=== PATIENT | male | born 1965 | race Caucasian/White ===

== ENCOUNTER 2017-04-02 07:31 | Day surgery (SDC) | payer MEDICAID ==
[2017-04-02] MEDS ORDERED: Lactated Ringer's 500 ML IV ONE (09:08)
[2017-04-02 11:20] VITALS: TEMP 97.2
[2017-04-02 11:37] VITALS: BP 113/64; PULSE 50; RESP 20; O2SAT 100
== END 2017-04-02 11:47 | disposition home or self-care (01) ==
LOC: H.ENDO 07:31
PROVIDERS: ATTEND Internal Medicine Gastroenterology
DX: Z12.11 Encounter for screening for malignant neoplasm of colon (principal); D12.2 Benign neoplasm of ascending colon; K64.8 Other hemorrhoids; K25.9 Gastric ulcer, unspecified as acute or chronic, without hemorrhage or perforation; K31.9 Disease of stomach and duodenum, unspecified; K74.60 Unspecified cirrhosis of liver; Z21 Asymptomatic human immunodeficiency virus [HIV] infection status; B18.2 Chronic viral hepatitis C; K29.50 Unspecified chronic gastritis without bleeding
CPT/HCPCS: 43239; 45380; 88305; 88342; J7120

== ENCOUNTER 2017-04-28 21:29 | Inpatient (IN) | payer MEDICAID, OTHER ==
[2017-04-28 21:29] VITALS: BMI 27.1
--- NOTE | 2017-04-28 22:27 | ED PDOC ---
HPI: Abdomen Time Seen by Provider: 04/28/17 21:36 Chief Complaint (Nursing): Abdominal Pain Chief Complaint (Provider): Abdominal Pain History Per: Patient History/Exam Limitations: no limitations Onset/Duration Of Symptoms: Days (5) Current Symptoms Are (Timing): Still Present Severity: Moderate Pain Scale Rating Of: 9 Location Of Pain/Discomfort: Periumbilical Quality Of Discomfort: Sharp, "Pain", Other ("Like being hit with a bat") Associated Symptoms: Nausea, Diarrhea (red), Back Pain, Urinary Symptoms (dark) . denies: Vomiting Exacerbating Factors: Movement, Cough, Upright Position Alleviating Factors: OTC Meds (Motrin) Last Bowel Movement: Today (1 hour ago) Additional Complaint(s): Ramon Waddell is a pleasant 51 yo male with PMHx of HIV, Hep C, anxiety, and depression presented to the ED with periumbilical pain. He shares that he had a reducible hernia for the past 6 months, however, for the last 5 days he has been experiencing intermittent abdominal pain especially at the site of herniation. Pain was intermittent until this morning, which has been consistent. Pain is periumbilical and does not radiate to his testicles, his back or epigastric. Quality of pain is sharp and like "someone hitting you with a bat". Rated 9/10; Pain aggravated with movement, leaning forward, cough. He has taken Motrin 600mg but did not significantly alleviate his pain. Shares of associated nausea, cough, SOB and cp 2/2 to cough. He has noted having red diarrhea with dark urine today. Diarrhea x 3 with last bowel movement 1 hour ago. Denies Vomiting, recent abdominal trauma. Positive for influenza when he was last seen here on Saturday, 2 days ago. PCP: Dr. Rudolph GI: Dr. 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 NKDA Past Medical History Vital Signs: Last Vital Signs Temp 99.2 F 04/28/17 21:30 Pulse 76 04/28/17 21:30 Resp 18 04/28/17 21:30 BP 118/72 04/28/17 21:30 Pulse Ox 98 04/29/17 00:46 - Medical History PMH: Anxiety, Arthritis, Asthma, Back Problems, Depression, Hepatitis (c), HIV, Rheumatoid Arthritis (hands, knees, ankles) Denies: Chronic Kidney Disease - Surgical History Surgical History: Endoscopy Other surgeries: Liver bx - Family History Family History: States: No Known Family Hx - Social History Current smoker - smoking cessation education provided: Yes (5/day 39 years) Alcohol: None Drugs: Denies (clean for 5years from heroin abuse) - Home Medications Home Medications: Ambulatory Orders Medication Instructions Recorded Albuterol HFA [Ventolin HFA 90 2 puff IH Q4 PRN 04/23/17 mcg/actuation (8 g)] Bisacodyl [Correctol] 5 mg PO ASDIR 04/23/17 Darunavir [Prezista] 800 mg PO DAILY 04/23/17 Dolutegravir Sodium [Tivicay] 50 mg PO DAILY 04/23/17 Escitalopram [Lexapro] 5 mg PO DAILY 04/23/17 Gabapentin [Neurontin] 300 mg PO TID 04/23/17 Ibuprofen [Motrin] 600 mg PO PRN PRN 04/23/17 Metronidazole [Flagyl] 500 mg PO TID 04/23/17 Mirtazapine [Remeron] 15 mg PO HS 04/23/17 [id number]/Sod Sulf,Bicarb,Cl/KCl 4,000 ml PO ASDIR 04/23/17 [Gavilyte-C with Flavor Pack 4000 ml] Propranolol [Inderal] 20 mg PO HS 04/23/17 Ritonavir [Norvir] 100 mg PO DAILY 04/23/17 Ondansetron ODT [Zofran ODT] 4 mg PO Q6 PRN #10 odt 04/26/17 - Allergies Allergies/Adverse Reactions: Allergies Allergy/AdvReac Type Severity Reaction Status Date / Time No Known Allergies Allergy Verified 04/29/17 00:44 Review of Systems ROS Statement: Except As Marked, All Systems Reviewed And Found Negative Cardiovascular: Positive for: Chest Pain (2/2 to coughing) Respiratory: Positive for: Cough, Shortness of Breath (recent + influenza) Gastrointestinal: Positive for: Nausea, Abdominal Pain, Diarrhea, Hematochezia. Negative for: Vomiting Musculoskeletal: Positive for: Back Pain (lumbar) Neurological: Negative for: Altered Mental Status Psych: Positive for: Anxiety, Depression Physical Exam - Reviewed Vital Signs Reviewed: Yes - Physical Exam Appears: Positive for: Uncomfortable, In Acute Distress Skin: Positive for: Normal Color, Warm, Dry Eye Exam: Positive for: Normal appearance, EOMI ENT: Positive for: Hearing Is (present bl). Negative for: Nasal Congestion Neck: Positive for: Normal, Painless ROM Cardiovascular/Chest: Positive for: Regular Rate, Rhythm, Chest Non Tender. Negative for: Tachycardia Respiratory: Positive for: Normal Breath Sounds. Negative for: Accessory Muscle Use, Wheezing Gastrointestinal/Abdominal: Positive for: Bowel Sounds, Tenderness, Guarding, Hernia (periumbilical ecchymosis ) Rectal: Positive for: Normal Exam, Rectal Tone Is: (normal), Stool Is Heme: ( sent for confirmation). Negative for: Blood Streaked Stool (on VIBHA), Hemorrhoids, Mass Extremity: Positive for: Normal ROM. Negative for: Tenderness Neurologic/Psych: Positive for: Alert, gas flow regulator II-XII, Oriented - Laboratory Results Result Diagrams: 04/28/17 23:10 04/28/17 23:10 - ECG O2 Sat by Pulse Oximetry: 98 Disposition - Clinical Impression Clinical Impression: Abdominal pain - Patient ED Disposition Is Patient to be Admitted: Yes Discussed With : Nick Goetz (Abdominal pain; periumbilical hernia with ecchymosis; Cholelithiasis on US; Admit to unit ) - Disposition Disposition Time: 00:30 Condition: FAIR Forms: [facility] (Uzbek)
--- NOTE | 2017-04-28 23:33 | US ---
EXAM: US Abdomen Limited, Right Upper Quadrant CLINICAL HISTORY: 51 years old, male; Pain; Abdominal pain; Epigastric; Patient HX: Liver biopsy done TECHNIQUE: Real-time ultrasound of the right upper quadrant with image documentation. COMPARISON: No relevant prior studies available. FINDINGS: Liver: Increased in echogenicity and size measuring 18 cm in longitudinal dimension. Nodular contour. No intrahepatic bile duct dilation. Gallbladder: The gallbladder is contracted. Surrounding decreased echogenicity which may be misinterpreted as gallbladder wall edema, but without gallbladder wall hyperemia. A single stone is identified. Common bile duct: No stones. No dilation measuring 5 mm. Pancreas: Visualization of the pancreas is limited by overlying bowel gas. Right kidney: Unremarkable echogenicity and size measuring 12.3 x 5.6 x 5.2 cm. No obstructing stones. No solid mass. No hydronephrosis. IMPRESSION: Fatty infiltration of an enlarged slightly nodular liver. Cholelithiasis, with a contracted gallbladder, limiting its evaluation. Limited evaluation of the pancreas, secondary to overlying bowel gas. Otherwise, Unremarkable sonographic evaluation of the right upper quadrant, as detailed above.
[2017-04-28 23:34] LABS: BASO # 0.1 K/uL (0.0-0.2); BASO % 0.8 % (0.0-2.0); EOS # 0.1 K/uL (0.0-0.7); EOS % 1.3 % (0.0-4.0); HEMATOCRIT 37.6 % (35.0-51.0); LYMPH # 1.3 K/uL (1.0-4.3); LYMPH % 20.3 % (20.0-40.0); MEAN CELL VOLUME 99.4 fl (80.0-94.0); MEAN CORPUSCULAR HEMOGLOBIN 32.6 pg (27.0-31.0); MEAN CORPUSCULAR HGB CONC 32.8 g/dL (33.0-37.0); MEAN PLATELET VOLUME 9.6 fl (7.2-11.7); MONO # 0.7 K/uL (0.0-0.8); MONO % 10.8 % (0.0-10.0); NEUT # 4.3 K/uL (1.8-7.0); NEUT % 66.8 % (50.0-75.0); RED CELL DISTRIBUTION WIDTH 14.1 % (11.5-14.5); WHITE BLOOD COUNT 6.4 K/uL (4.8-10.8)
[2017-04-28 23:57] LABS: PARTIAL THROMBOPLASTIN TIME 29.6 Seconds (25.6-37.1)
[2017-04-28 23:59] LABS: ALB/GLOB RATIO 0.9 (1.0-2.1); ALKALINE PHOSPHATASE 198 U/L (38-126); ALT/SGPT 63 U/L (21-72); AST/SGOT 95 U/L (17-59); BILIRUBIN,TOTAL 2.7 mg/dl (0.2-1.3); BLOOD UREA NITROGEN 19 mg/dl (9-20); CALCIUM 8.1 mg/dL (8.4-10.2); CARBON DIOXIDE 26 mmol/L (22-30); CHLORIDE 110 mmol/L (98-107); GFR AFRICAN-AMERICAN > 60; GLUCOSE,RANDOM 97 mg/dL (75-110); LIPASE 391 U/L (23-300); MAGNESIUM 2.1 MG/DL (1.6-2.3); PHOSPHOROUS 2.8 mg/dl (2.5-4.5); POTASSIUM 4.2 MMOL/L (3.6-5.0); SODIUM 142 mmol/l (132-148); TOTAL PROTEIN 6.4 G/DL (6.3-8.2)
[2017-04-29] MEDS ORDERED: Sodium Chloride 0.9% 1,000 ML IV STA (00:18)
[2017-04-29 00:43] LABS: RBC URINE 3 /hpf (0-3); URINE BACTERIA RARE (<OCC); URINE BILIRUBIN SMALL (NEGATIVE); URINE BLOOD NEGATIVE (NEGATIVE); URINE COLOR AMBER (YELLOW); URINE GLUCOSE (UA) NEG (Normal); URINE KETONE NEGATIVE (NEGATIVE); URINE LEUKOCYTE ESTERASE NEG Leu/uL (Negative); URINE PROTEIN 30 mg/dL (NEGATIVE); WBC URINE 3 /hpf (0-5)
--- NOTE | 2017-04-29 01:06 | CP.PCM.HP ---
History of Present Illness - History of Present Illness History of Present Illness: 51 yo male with PMHx remarkable for HIV, Hepatitis C, anxiety, and depression presented to the [facility] ED with a complaint of abdominal pain. He reports the pain started approx Saturday after his biopsy and was located around his umbilicus. It was approx a 5/10 and intermittent without any radiation. During the week he reports the pain got progressively worse. On Thursday 04/26, he was evaluated in the ER and diagnosed with the flu. He reports during this evaluation he was still feeling the pain w/o much improvement. This morning the pain worsened and became constant. It went from 5/10 to 10/10. It is sharp in character and nonradiating. It is alleviated with rest and exacerbated with movement or anything that increases intraabdominal pressure such as coughing/ straining/flexing. He attempted a 600mg dose of Motrin w/o improvement. He reports he has been having diarrhea during the week, but today it was pure water and reddish in color. Last BM was approx 2 hours ago. Still feels the urge but says he can control it for now. He also reports much darker urine but thinks this is due to the fact that he hasnt been drinking as much. Denies fever /chills, headaches, changes in vision, CP/SOB/Palpitations, N/V, urinary symptoms, numbness/tingling. ROS: all systems reviewed, as mentioned above, otherwise negative PMD: Dr. Shantanu Gonzalez (last visit 03/25/2017) GI: Dr. Strauss? no encounters in ecw seen. but according to PMD note, appt scheduled. PMHx: HIV, Hepatitis C, Liver fibrosis, Anxiety, depression MEDs: Prezista 800mg QD, Norvir 100mg QD, Tivicay 50mg QD. Psurghx: liver biopsy PHosphx: various ED visits ALL: NKDA Vaccinehx: influenza given 03/25 Social: denies ETOH/drug abuse, still smokes tobacco, approx 6-7 cigarettes per day. reports being clean for > 5 years from substance abuse Familyhx: denies any hx of cancer/CAD/WA/Stroke ED Course: Vitals on presentation T 99.2, HR 76, BP 118/72, RR 18, POX 98% RA Labs: CBC: 6.4>12.3/37.6<109 CMP: t bili 2.7, AST 95 Lipase: 391 Urine tox: negative Coags: 14.4/1.3/29.6 Imaging: abdominal u/s: contracted gallbladder, poor evaluation of pancreas secondary to bowel gas CT ABD: Admitted to med/surg Present on Admission - Present on Admission Any Indicators Present on Admission: No Past Patient History - Past Medical History & Family History Past Medical History?: Yes - Past Social History Alcohol: None Drugs: Denies (clean for 5years from heroin abuse) - CARDIAC Hx Cardiac Disorders: No - PULMONARY Hx Asthma: Yes - NEUROLOGICAL Hx Neurological Disorder: Yes Hx Dizziness: Yes Other/Comment: NUMBNESS/CRAMPS LEGS - HEENT Hx HEENT Problems: No - RENAL Hx Chronic Kidney Disease: No - ENDOCRINE/METABOLIC Hx Endocrine Disorders: No - HEMATOLOGICAL/ONCOLOGICAL Hx Human Immunodeficiency Virus (HIV): Yes - INTEGUMENTARY Hx Dermatological Problems: No - MUSCULOSKELETAL/RHEUMATOLOGICAL Hx Arthritis: Yes Hx Rheumatoid Arthritis: Yes (hands, knees, ankles) - GASTROINTESTINAL Hx Gastrointestinal Disorders: No - GENITOURINARY/GYNECOLOGICAL Hx Genitourinary Disorders: No - PSYCHIATRIC Hx Anxiety: Yes Hx Depression: Yes - SURGICAL HISTORY Hx Surgeries: Yes - ANESTHESIA Hx Anesthesia: Yes Hx Anesthesia Reactions: No Hx Malignant Hyperthermia: No Meds Allergies/Adverse Reactions: Allergies Allergy/AdvReac Type Severity Reaction Status Date / Time No Known Allergies Allergy Verified 04/29/17 00:44 Physical Exam - Constitutional Appears: Non-toxic, No Acute Distress - Head Exam Head Exam: ATRAUMATIC, NORMOCEPHALIC - Eye Exam Eye Exam: EOMI. absent: Conjunctival injection, Scleral icterus Pupil Exam: PERRL - ENT Exam ENT Exam: Mucous Membranes Dry. absent: Mucous Membranes Moist - Neck Exam Neck exam: Positive for: Full Rom. Negative for: Lymphadenopathy - Respiratory Exam Respiratory Exam: Clear to Auscultation Bilateral, NORMAL BREATHING PATTERN. absent: Rales, Rhonchi, Wheezes - Cardiovascular Exam Cardiovascular Exam: REGULAR RHYTHM, RRR, +S1, +S2. absent: Tachycardia, JVD, Rubs, Systolic Murmur - GI/Abdominal Exam GI & Abdominal Exam: Hernia, Normal Bowel Sounds, Soft, Tenderness (gutierrez- umbilical tenderness ). absent: Distended, Firm, Guarding, Rebound, Rigid Additional comments: ecchymosis just above umbilicus, hard tender mass felt underneath - Extremities Exam Extremities exam: Positive for: normal capillary refill, normal inspection, pedal pulses present. Negative for: pedal edema, tenderness - Neurological Exam Neurological exam: Alert, CN II-XII Intact, Oriented x3, Reflexes Normal - Psychiatric Exam Psychiatric exam: Normal Affect, Normal Mood - Skin Skin Exam: Dry, Intact, Normal Color, Warm Results - Vital Signs Recent Vital Signs: Last Vital Signs Temp 99.0 F 04/29/17 00:46 Pulse 66 04/29/17 00:46 Resp 18 04/29/17 00:46 BP 121/57 L 04/29/17 00:46 Pulse Ox 98 04/29/17 00:49 - Labs Result Diagrams: 04/28/17 23:10 04/28/17 23:10 Labs: Laboratory Results - last 24 hr 04/28/17 04/28/17 04/28/17 23:10 23:10 23:10 WBC 6.4 RBC 3.79 L Hgb 12.3 Hct 37.6 MCV 99.4 H MCH 32.6 H MCHC 32.8 L RDW 14.1 Plt Count 109 L D MPV 9.6 Neut % (Auto) 66.8 Lymph % (Auto) 20.3 Nolan % (Auto) 10.8 H Eos % (Auto) 1.3 Baso % (Auto) 0.8 Neut # 4.3 Lymph # 1.3 Nolan # 0.7 Eos # 0.1 Baso # 0.1 PT 14.4 H INR 1.3 H APTT 29.6 Sodium 142 Potassium 4.2 Chloride 110 H Carbon Dioxide 26 Anion Gap 10 BUN 19 Creatinine 0.9 Est GFR ( Amer) > 60 Est GFR (Non-Af Amer) > 60 Random Glucose 97 Calcium 8.1 L Phosphorus 2.8 Magnesium 2.1 Total Bilirubin 2.7 H AST 95 H D ALT 63 Alkaline Phosphatase 198 H Total Protein 6.4 Albumin 3.0 L Globulin 3.5 Albumin/Globulin Ratio 0.9 L Lipase 391 H Urine Color Urine Clarity Urine pH Ur Specific Poth Urine Protein Urine Glucose (UA) Urine Ketones Urine Blood Urine Nitrate Urine Bilirubin Urine Urobilinogen Ur Leukocyte Esterase Urine RBC (Auto) Urine Microscopic WBC Urine Bacteria Urine Opiates Screen Urine Methadone Screen Ur Barbiturates Screen Ur Phencyclidine Scrn Ur Amphetamines Screen U Benzodiazepines Scrn U Oth Cocaine Metabols U Cannabinoids Screen Blood Type Antibody Screen BBK History Checked 04/28/17 04/29/17 04/29/17 23:10 00:01 00:01 WBC RBC Hgb Hct MCV MCH MCHC RDW Plt Count MPV Neut % (Auto) Lymph % (Auto) Nolan % (Auto) Eos % (Auto) Baso % (Auto) Neut # Lymph # Nolan # Eos # Baso # PT INR APTT Sodium Potassium Chloride Carbon Dioxide Anion Gap BUN Creatinine Est GFR ( Amer) Est GFR (Non-Af Amer) Random Glucose Calcium Phosphorus Magnesium Total Bilirubin AST ALT Alkaline Phosphatase Total Protein Albumin Globulin Albumin/Globulin Ratio Lipase Urine Color Sita Urine Clarity Cloudy Urine pH 5.0 Ur Specific Poth 1.029 Urine Protein 30 Urine Glucose (UA) Neg Urine Ketones Negative Urine Blood Negative Urine Nitrate Negative Urine Bilirubin Small Urine Urobilinogen 4.0 Ur Leukocyte Esterase Neg Urine RBC (Auto) 3 Urine Microscopic WBC 3 Urine Bacteria Rare Urine Opiates Screen Negative Urine Methadone Screen Negative Ur Barbiturates Screen Negative Ur Phencyclidine Scrn Negative Ur Amphetamines Screen Negative U Benzodiazepines Scrn Negative U Oth Cocaine Metabols Negative U Cannabinoids Screen Negative Blood Type A NEGATIVE Antibody Screen Negative BBK History Checked No verified bt Assessment & Plan - Assessment and Plan (Free Text) Assessment: Assessment: 51 y/o male with a PMHx remarkable for HIV, Hepatitis C, Anxiety/depression admitted for evaluation of gutierrez-umbilical abdominal pain with elevated lipase. Plan: 1) Gutierrez-umbilical abdominal pain -given +[place] sign, more severe etiology cannot be excluded at this moment -abd u/s inconclusive -CT abd/pelvis w/contrast pending -NPO -LR @ 80mls/hr -Pain control, dilaudid 0.5 mg PRN severe pain, toradol 30mg moderate -Lipase 391 -may consider general surgery consult pending CT results. 2) Asymptomatic HIV -CD4 on 03/25: 403 -Meds held due to NPO status -will resume once diet advanced 3) Chronic Hep C: -not currently on medications -in the process of being worked up by Dr. Strauss -consider GI consult 4) DVT Prophylaxis -SCDs
[2017-04-29] MEDS ORDERED: Lactated Ringer's 1,000 ML IV SCH ×2 (01:45→07:45)
[2017-04-29] MEDS ORDERED: Albuterol HFA 90 mcg/actuation (8 g) IH PRN (03:27)
[2017-04-29] MEDS: HYDROmorphone 0.5 mg/0.5 ml ISec IVP PRN ×5 (03:31→21:17)
--- NOTE | 2017-04-29 08:03 | CP.PCM.PN ---
Addendum entered and electronically signed by Manish Joshi DPM 04/29/17 16:23 : Patient seen at bedside with General Surgery attending Dr. Mojica who was able to reduce hernia at bedside. F/U with CT abd/pelvis w/contrast. Will keep patient NPO in the meantime. Patient's Jennifer-umbilical abdominal pain most likely secondary to umbilical hernia. Original Note: Subjective - Date & Time of Evaluation Date of Evaluation: 04/29/17 Time of Evaluation: 07:51 - Subjective Subjective: Progress Note for Family Medicine- Dr. Palencia 51 y.o male with PMHx remarkable for HIV, Hepatitis C, anxiety, and depression seen for jennifer-umbilical abdominal pain. Patient is seen laying in bed, in NAD and AA0x3. Patient reports today his pain has decreased 6/10 secondary to pain medications given to him. Mentions the pain is 8/10 with coughing, bending, or stretching. He describes the pain as a sharp pain that stays localized to the abdominal area. He describes the pain as if his stomach was being hit by a bat. Patient reports that with coughing he would get associated SOB. No BM in 2 days. Patient mentions that he has diarrhea - yellow and green in color on Saturday. Pt reports he was told Dr. Strauss that he had an infection in his stool and was given antibiotics to take for the past week. Patient denies n/v/cp /chills/headaches/fever/urinary symptoms. Denies muscle weakness. Objective - Vital Signs/Intake and Output Vital Signs (last 24 hours): Temp Pulse Resp BP Pulse Ox 99.0 F 66 18 121/57 L 98 04/29/17 02:15 04/29/17 02:15 04/29/17 02:15 04/29/17 02:15 04/29/17 00:49 - Medications Medications: Current Medications Albuterol (Ventolin Hfa 90 Mcg/Actuation (8 G)) 2 puff IH Q4 PRN PRN Reason: Shortness of Breath Hydromorphone HCl (Dilaudid) 0.5 mg IVP Q6H PRN PRN Reason: Pain, severe (8-10) Last Admin: 04/29/17 03:31 Dose: 0.5 mg Lactated Ringer's (Lactated Ringer's) 1,000 mls @ 250 mls/hr IV .Q4H CLARI Ketorolac Tromethamine (Toradol) 30 mg IM Q6 PRN PRN Reason: Pain, moderate (4-7) Ondansetron HCl (Zofran Inj) 4 mg IVP Q6 PRN PRN Reason: Nausea/Vomiting - Labs Labs: 04/28/17 23:10 04/28/17 23:10 PT 14.4 Seconds (9.8-13.1) H 04/28/17 23:10 INR 1.3 (0.9-1.2) H 04/28/17 23:10 APTT 29.6 Seconds (25.6-37.1) 04/28/17 23:10 - Constitutional Appears: Non-toxic, No Acute Distress - Head Exam Head Exam: ATRAUMATIC, NORMAL INSPECTION - Eye Exam Eye Exam: EOMI - ENT Exam ENT Exam: Mucous Membranes Dry. absent: Mucous Membranes Moist - Neck Exam Neck Exam: Full ROM. absent: Lymphadenopathy - Respiratory Exam Respiratory Exam: NORMAL BREATHING PATTERN. absent: Rales, Rhonchi, Wheezes, Respiratory Distress, Stridor - Cardiovascular Exam Cardiovascular Exam: REGULAR RHYTHM, RRR, +S1, +S2 - GI/Abdominal Exam GI & Abdominal Exam: Soft, Tenderness, Hernia, Normal Bowel Sounds Additional comments: Mild pain with palpation to the upper left and right quadrant; no rebound pain Moderate to severe pain illicited with palpation to the umbilicus region Ecchymosis noted superior to the umbilicus Palpable hard, tender mass at the umbilicus region - Extremities Exam Extremities Exam: Full ROM, Normal Capillary Refill, Normal Inspection. absent : Calf Tenderness, Joint Swelling, Pedal Edema, Tenderness - Neurological Exam Neurological Exam: Alert, Awake, Oriented x3 - Psychiatric Exam Psychiatric exam: Normal Affect, Normal Mood - Skin Skin Exam: Dry, Intact, Normal Color, Warm Assessment and Plan - Assessment and Plan (Free Text) Assessment: 51 y/o male with a PMHx remarkable for HIV, Hepatitis C, Anxiety/depression with jennifer-umbilical abdominal pain Plan: 1) Jennifer-umbilical abdominal pain -ABD U/S inconclusive Impression: fatty infiltation of an enlarged slightly nodular liver Cholelithiasis, with a contracted gallbladder, limiting its evaluation -EKG- pending final report -CT abd/pelvis w/contrast ordered- pending -Pain control, Dilaudid 0.5 mg PRN severe pain, Toradol 30mg moderate pain -Lipase 391 -General surgery consulted and plans as follow: reduce hernia in t-jelena and w/ ice if unable to reduce, will consider OR - repeat Labs - NPO - IV Fluids - further recs per Dr. 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 Strauss -f/u GI for possible treatment 6) DVT Prophylaxis -SCDs
--- NOTE | 2017-04-29 09:23 | CP.PCM.CON ---
<Driss Knowles - Last Filed: 04/29/17 11:08> History of Present Illness - History of Present Illness History of Present Illness: General Surgery- Dr. Mojica 51M w/ pmhx of HIV, Liver cirrhosis 2/2 Hepatitis C w/ recent liver biopsy last Saturday presented to [facility] ED with abdominal pain that started after drinking. Surgery was consulted for an umbilical hernia that the pateint states was first noticed 4 months prior. Patient has been having regular bowel movements. Yesterday pt had an episode of non-bloody loose stool. Patient is currently passing gas and having BM. Reduction of the hernia was attempted at bedside however patient was in tender around umbilicus. Denies current: fever, chills, chest pain, shortness of breath, nausea, vomiting , diarrhea, numbness/tingling in extremities. PMH: HepC, HIV,depression, anxiety, chronic gastritis, hx of substance abuse ( last use 5 years ago) PSH: Liver biopsy, EGD, colonoscopy performed by Dr. Adam. ALL: NKDA SocialHx: Denies current illicit drug use. occasional ETOH and tobacco use (6-7 cigarettes/day). Review of Systems - Review of Systems All systems: reviewed and no additional remarkable complaints except - Constitutional Constitutional: As Per HPI Past Patient History - Past Medical History & Family History Past Medical History?: Yes - Past Social History Alcohol: None Drugs: Denies (clean for 5years from heroin abuse) - CARDIAC Hx Cardiac Disorders: No - PULMONARY Hx Asthma: Yes - NEUROLOGICAL Hx Neurological Disorder: Yes Hx Dizziness: Yes Other/Comment: NUMBNESS/CRAMPS LEGS - HEENT Hx HEENT Problems: No - RENAL Hx Chronic Kidney Disease: No - ENDOCRINE/METABOLIC Hx Endocrine Disorders: No - HEMATOLOGICAL/ONCOLOGICAL Hx Human Immunodeficiency Virus (HIV): Yes - INTEGUMENTARY Hx Dermatological Problems: No - MUSCULOSKELETAL/RHEUMATOLOGICAL Hx Arthritis: Yes Hx Rheumatoid Arthritis: Yes (hands, knees, ankles) - GASTROINTESTINAL Hx Gastrointestinal Disorders: No - GENITOURINARY/GYNECOLOGICAL Hx Genitourinary Disorders: No - PSYCHIATRIC Hx Anxiety: Yes Hx Depression: Yes - SURGICAL HISTORY Hx Surgeries: Yes - ANESTHESIA Hx Anesthesia: Yes Hx Anesthesia Reactions: No Hx Malignant Hyperthermia: No Meds Allergies/Adverse Reactions: Allergies Allergy/AdvReac Type Severity Reaction Status Date / Time No Known Allergies Allergy Verified 04/29/17 00:44 - Medications Medications: Current Medications Albuterol (Ventolin Hfa 90 Mcg/Actuation (8 G)) 2 puff IH Q4 PRN PRN Reason: Shortness of Breath Hydromorphone HCl (Dilaudid) 0.5 mg IVP Q6H PRN PRN Reason: Pain, severe (8-10) Last Admin: 04/29/17 03:31 Dose: 0.5 mg Lactated Ringer's (Lactated Ringer's) 1,000 mls @ 250 mls/hr IV .Q4H [facility] Ketorolac Tromethamine (Toradol) 30 mg IM Q6 PRN PRN Reason: Pain, moderate (4-7) Ondansetron HCl (Zofran Inj) 4 mg IVP Q6 PRN PRN Reason: Nausea/Vomiting Physical Exam - Constitutional Appears: Non-toxic, No Acute Distress - Head Exam Head Exam: ATRAUMATIC - Eye Exam Eye Exam: EOMI. absent: Scleral icterus - Respiratory Exam Respiratory Exam: NORMAL BREATHING PATTERN. absent: Accessory Muscle Use, Respiratory Distress - Cardiovascular Exam Cardiovascular Exam: +S1, +S2. absent: Bradycardia, Tachycardia - GI/Abdominal Exam GI & Abdominal Exam: Soft. absent: Distended, Firm, Guarding, Tenderness - Extremities Exam Extremities exam: Positive for: normal inspection. Negative for: calf tenderness - Neurological Exam Neurological exam: Alert, Oriented x3 - Psychiatric Exam Psychiatric exam: Flat Affect - Skin Skin Exam: Dry, Normal Color, Warm Results - Vital Signs Recent Vital Signs: Last Vital Signs Temp 98.9 F 04/29/17 08:44 Pulse 67 04/29/17 08:44 Resp 20 04/29/17 08:44 BP 124/71 04/29/17 08:44 Pulse Ox 95 04/29/17 08:44 - Labs Result Diagrams: 04/29/17 09:20 04/29/17 09:20 Labs: Laboratory Results - last 24 hr 04/28/17 04/28/17 04/28/17 23:10 23:10 23:10 WBC 6.4 RBC 3.79 L Hgb 12.3 Hct 37.6 MCV 99.4 H MCH 32.6 H MCHC 32.8 L RDW 14.1 Plt Count 109 L D MPV 9.6 Neut % (Auto) 66.8 Lymph % (Auto) 20.3 [place] % (Auto) 10.8 H Eos % (Auto) 1.3 Baso % (Auto) 0.8 Neut # 4.3 Lymph # 1.3 [place] # 0.7 Eos # 0.1 Baso # 0.1 PT 14.4 H INR 1.3 H APTT 29.6 Sodium 142 Potassium 4.2 Chloride 110 H Carbon Dioxide 26 Anion Gap 10 BUN 19 Creatinine 0.9 Est GFR ( Amer) > 60 Est GFR (Non-Af Amer) > 60 Random Glucose 97 Calcium 8.1 L Phosphorus 2.8 Magnesium 2.1 Total Bilirubin 2.7 H AST 95 H D ALT 63 Alkaline Phosphatase 198 H Total Protein 6.4 Albumin 3.0 L Globulin 3.5 Albumin/Globulin Ratio 0.9 L Lipase 391 H Urine Color Urine Clarity Urine pH Ur Specific [place] Urine Protein Urine Glucose (UA) Urine Ketones Urine Blood Urine Nitrate Urine Bilirubin Urine Urobilinogen Ur Leukocyte Esterase Urine RBC (Auto) Urine Microscopic WBC Urine Bacteria Urine Opiates Screen Urine Methadone Screen Ur Barbiturates Screen Ur Phencyclidine Scrn Ur Amphetamines Screen U Benzodiazepines Scrn U Oth Cocaine Metabols U Cannabinoids Screen Blood Type Blood Type Confirm Antibody Screen BBK History Checked 04/28/17 04/29/17 04/29/17 23:10 00:01 00:01 WBC RBC Hgb Hct MCV MCH MCHC RDW Plt Count MPV Neut % (Auto) Lymph % (Auto) [place] % (Auto) Eos % (Auto) Baso % (Auto) Neut # Lymph # [place] # Eos # Baso # PT INR APTT Sodium Potassium Chloride Carbon Dioxide Anion Gap BUN Creatinine Est GFR ( Amer) Est GFR (Non-Af Amer) Random Glucose Calcium Phosphorus Magnesium Total Bilirubin AST ALT Alkaline Phosphatase Total Protein Albumin Globulin Albumin/Globulin Ratio Lipase Urine Color Sita Urine Clarity Cloudy Urine pH 5.0 Ur Specific [place] 1.029 Urine Protein 30 Urine Glucose (UA) Neg Urine Ketones Negative Urine Blood Negative Urine Nitrate Negative Urine Bilirubin Small Urine Urobilinogen 4.0 Ur Leukocyte Esterase Neg Urine RBC (Auto) 3 Urine Microscopic WBC 3 Urine Bacteria Rare Urine Opiates Screen Negative Urine Methadone Screen Negative Ur Barbiturates Screen Negative Ur Phencyclidine Scrn Negative Ur Amphetamines Screen Negative U Benzodiazepines Scrn Negative U Oth Cocaine Metabols Negative U Cannabinoids Screen Negative Blood Type A NEGATIVE Blood Type Confirm Antibody Screen Negative BBK History Checked No verified bt 04/29/17 01:05 WBC RBC Hgb Hct MCV MCH MCHC RDW Plt Count MPV Neut % (Auto) Lymph % (Auto) [place] % (Auto) Eos % (Auto) Baso % (Auto) Neut # Lymph # [place] # Eos # Baso # PT INR APTT Sodium Potassium Chloride Carbon Dioxide Anion Gap BUN Creatinine Est GFR ( Amer) Est GFR (Non-Af Amer) Random Glucose Calcium Phosphorus Magnesium Total Bilirubin AST ALT Alkaline Phosphatase Total Protein Albumin Globulin Albumin/Globulin Ratio Lipase Urine Color Urine Clarity Urine pH Ur Specific [place] Urine Protein Urine Glucose (UA) Urine Ketones Urine Blood Urine Nitrate Urine Bilirubin Urine Urobilinogen Ur Leukocyte Esterase Urine RBC (Auto) Urine Microscopic WBC Urine Bacteria Urine Opiates Screen Urine Methadone Screen Ur Barbiturates Screen Ur Phencyclidine Scrn Ur Amphetamines Screen U Benzodiazepines Scrn U Oth Cocaine Metabols U Cannabinoids Screen Blood Type Blood Type Confirm A NEGATIVE Antibody Screen BBK History Checked Assessment & Plan - Assessment and Plan (Free Text) Assessment: 51M hx of hepatitis C and liver cirrhosis, w/ umbilical hernia Plan: - ABD CT scan - attempt to reduce hernia in t-jelena and w/ ice * If unable to reduce, will consider OR - repeat Labs - NPO - IV Fluids - medical management per primary - further recs per Dr. Galina Knowles PGY1 <Berto Mojica - Last Filed: 05/01/17 19:52> Results - Vital Signs Recent Vital Signs: Last Vital Signs Temp 98.9 F 05/01/17 00:00 Pulse 74 05/01/17 00:00 Resp 19 05/01/17 00:00 BP 110/61 05/01/17 00:00 Pulse Ox 95 05/01/17 00:00 - Labs Result Diagrams: 05/01/17 05:35 05/01/17 05:35 Labs: Laboratory Results - last 24 hr 04/29/17 05/01/17 05/01/17 09:27 05:35 05:35 WBC 5.0 RBC 3.46 L Hgb 11.3 L Hct 34.3 L MCV 99.3 H MCH 32.8 H MCHC 33.0 RDW 13.5 Plt Count 125 L MPV 9.4 Neut % (Auto) 62.5 Lymph % (Auto) 23.2 [place] % (Auto) 11.1 H Eos % (Auto) 2.0 Baso % (Auto) 1.2 Neut # 3.1 Lymph # 1.2 [place] # 0.6 Eos # 0.1 Baso # 0.1 PT 15.4 H INR 1.4 H APTT 40.4 H D Sodium Potassium Chloride Carbon Dioxide Anion Gap BUN Creatinine Est GFR ( Amer) Est GFR (Non-Af Amer) Random Glucose Calcium Total Bilirubin AST ALT Alkaline Phosphatase Total Protein Albumin Globulin Albumin/Globulin Ratio C. difficile Ag & Toxin Positive antigen 05/01/17 05:35 WBC RBC Hgb Hct MCV MCH MCHC RDW Plt Count MPV Neut % (Auto) Lymph % (Auto) [place] % (Auto) Eos % (Auto) Baso % (Auto) Neut # Lymph # [place] # Eos # Baso # PT INR APTT Sodium 136 Potassium 3.7 Chloride 103 Carbon Dioxide 28 Anion Gap 9 L BUN 14 Creatinine 0.7 L Est GFR ( Amer) > 60 Est GFR (Non-Af Amer) > 60 Random Glucose 88 Calcium 7.6 L Total Bilirubin 2.1 H AST 110 H ALT 59 Alkaline Phosphatase 159 H Total Protein 5.9 L Albumin 2.7 L Globulin 3.1 Albumin/Globulin Ratio 0.9 L C. difficile Ag & Toxin Attending/Attestation - Attestation I have personally seen and examined this patient.: Yes I have fully participated in the care of the patient.: Yes I have reviewed all pertinent clinical information: Yes Notes (Text): Pt was seen and examined at bedside Agree with above note and assessment Pt is incarcerated umbilical hernia with liver cirrhosis and ascites Periumbilical tenderness present Labs and radilogy reviewed Reduction at bedside, If it does note work, Pt with need surgica intervention Hernia reduced at bedside Serial abdominal exam C.w current mx Plan d.w pt in detail. Risk and benefit explained in detail.
[2017-04-29] MEDS: Lactated Ringer's 1,000 ML IV SCH ×3 (09:35→21:15)
[2017-04-29 09:50] LABS: BASO % 0.6 % (0.0-2.0); EOS # 0.1 K/uL (0.0-0.7); EOS % 0.9 % (0.0-4.0); HEMATOCRIT 35.2 % (35.0-51.0); LYMPH # 1.3 K/uL (1.0-4.3); LYMPH % 22.5 % (20.0-40.0); MEAN CELL VOLUME 99.1 fl (80.0-94.0); MEAN CORPUSCULAR HEMOGLOBIN 32.6 pg (27.0-31.0); MEAN CORPUSCULAR HGB CONC 32.9 g/dL (33.0-37.0); MEAN PLATELET VOLUME 9.5 fl (7.2-11.7); MONO # 0.8 K/uL (0.0-0.8); MONO % 12.7 % (0.0-10.0); NEUT # 3.8 K/uL (1.8-7.0); NEUT % 63.3 % (50.0-75.0); NRBC % 0.1 % (0.0-0.0); WHITE BLOOD COUNT 5.9 K/uL (4.8-10.8)
[2017-04-29 09:58] LABS: ALB/GLOB RATIO 0.8 (1.0-2.1); ALKALINE PHOSPHATASE 170 U/L (38-126); ALT/SGPT 60 U/L (21-72); AST/SGOT 86 U/L (17-59); BILIRUBIN,TOTAL 2.9 mg/dl (0.2-1.3); BLOOD UREA NITROGEN 17 mg/dl (9-20); CALCIUM 7.6 mg/dL (8.4-10.2); CARBON DIOXIDE 28 mmol/L (22-30); CHLORIDE 107 mmol/L (98-107); GFR AFRICAN-AMERICAN > 60; GLUCOSE,RANDOM 82 mg/dL (75-110); POTASSIUM 4.8 MMOL/L (3.6-5.0); SODIUM 139 mmol/l (132-148); TOTAL PROTEIN 5.9 G/DL (6.3-8.2)
--- NOTE | 2017-04-29 11:24 | CARD ---
APPROVED REPORT EKG Measurement Heart [id number] <Conclusion> Normal sinus rhythm Possible Lateral infarct, age undetermined Abnormal ECG
[2017-04-29] MEDS ORDERED: HYDROmorphone 0.5 mg/0.5 ml ISec IVP PRN (12:08)
[2017-04-29] MEDS ORDERED: Iohexol 300 100 ML IJ ONE (15:46)
[2017-04-29] MEDS ORDERED: Sodium Chloride 0.9% 50 ML IV ONE (15:47)
--- NOTE | 2017-04-29 17:39 | CT ---
PROCEDURE: CT Abdomen and Pelvis with contrast HISTORY: umbilical hernia; possible OR today COMPARISON: 04/26/2017 CT abdomen and pelvis TECHNIQUE: Contrast dose: Radiation dose: Total exam DLP = mGy-cm. This CT exam was performed using one or more of the following dose reduction techniques: Automated exposure control, adjustment of the mA and/or kV according to patient size, and/or use of iterative reconstruction technique. FINDINGS: LOWER THORAX: Unremarkable. LIVER: Cirrhotic liver with diffuse masslike process she unchanged compared the prior CT scan. She GALLBLADDER AND BILE DUCTS: Cholelithiasis, gallbladder wall enhancement and pericholecystic fluid suggesting acute cholecystitis PANCREAS: Unremarkable. No gross lesion or ductal dilatation. SPLEEN: Stable splenomegaly ADRENALS: Unremarkable. No mass. KIDNEYS AND URETERS: Unremarkable. No hydronephrosis. No solid mass. VASCULATURE: Unremarkable. No aortic aneurysm. BOWEL: Within the loop of small bowel within the ventral wall hernia no significant findings. APPENDIX: Normal appendix. PERITONEUM: Trace free fluid identified in the pelvis/cul de sac. This represents a new finding. LYMPH NODES: Unremarkable. No enlarged lymph nodes. BLADDER: Unremarkable. REPRODUCTIVE: Unremarkable. BONES: No acute fracture. OTHER FINDINGS: The anterior abdominal wall hernia now contains a loop fluid-filled loops of bowel. There is no evidence of proximal bowel dilatation. Acute IMPRESSION: 1. Fluid-filled loop of bowel and mesentery now resides within the periumbilical hernia without proximal bowel obstruction. 2. Cholelithiasis, gallbladder wall thickening and pericholecystic fluid suggest acute cholecystitis. 3. Cirrhotic liver, splenomegaly unchanged compared to the prior study
[2017-04-30] MEDS: HYDROmorphone 0.5 mg/0.5 ml ISec IVP PRN ×5 (01:02→17:39)
[2017-04-30] MEDS: Lactated Ringer's 1,000 ML IV SCH ×5 (02:06→17:44)
[2017-04-30 06:31] LABS: BLOOD UREA NITROGEN 17 mg/dl (9-20); CALCIUM 7.9 mg/dL (8.4-10.2); CARBON DIOXIDE 28 mmol/L (22-30); CHLORIDE 103 mmol/L (98-107); GFR AFRICAN-AMERICAN > 60; GLUCOSE,RANDOM 74 mg/dL (75-110); POTASSIUM 4.6 MMOL/L (3.6-5.0); SODIUM 138 mmol/l (132-148)
[2017-04-30 06:32] LABS: HEMATOCRIT 37.5 % (35.0-51.0); MEAN CELL VOLUME 99.1 fl (80.0-94.0); MEAN CORPUSCULAR HEMOGLOBIN 32.9 pg (27.0-31.0); MEAN CORPUSCULAR HGB CONC 33.2 g/dL (33.0-37.0); RED CELL DISTRIBUTION WIDTH 13.6 % (11.5-14.5)
--- NOTE | 2017-04-30 09:01 | CP.PCM.PN ---
Subjective - Date & Time of Evaluation Date of Evaluation: 04/30/17 Time of Evaluation: 08:55 - Subjective Subjective: Progress Note for Family Medicine- Dr. Palencia 51 y.o male with PMHx remarkable for HIV, Hepatitis C, anxiety, and depression seen for gutierrez-umbilical abdominal pain. Patient is seen laying in bed, in NAD and AA0x3. Patient reports that his pain intensity is the same as yesterday. He mentions the pain is now just localized at the central abdominal. Mentions the pain is similar 8/10 with coughing, bending, or stretching. Patient reports that with coughing he would get associated SOB. Patient reports that he is feeling dehydrated. He reports his mouth feeling dry. Reports no problems with voiding. No BM in 3 days, reports gas. Patient denies n/v/cp/chills/headaches/ fever/urinary symptoms. Denies muscle weakness. Objective - Vital Signs/Intake and Output Vital Signs (last 24 hours): Temp Pulse Resp BP Pulse Ox 98.4 F 62 20 121/72 93 L 04/30/17 07:48 04/30/17 07:48 04/30/17 07:48 04/30/17 07:48 04/30/17 07:48 - Medications Medications: Current Medications Albuterol (Ventolin Hfa 90 Mcg/Actuation (8 G)) 2 puff IH Q4 PRN PRN Reason: Shortness of Breath Hydromorphone HCl (Dilaudid) 0.5 mg IVP Q4H PRN PRN Reason: Pain, severe (8-10) Last Admin: 04/30/17 05:22 Dose: 0.5 mg Hydromorphone HCl (Dilaudid) 0.25 mg IVP Q4H PRN PRN Reason: Pain, moderate (4-7) Lactated Ringer's (Lactated Ringer's) 1,000 mls @ 250 mls/hr IV .Q4H [facility] Last Admin: 04/29/17 17:09 Dose: 250 mls/hr Lactated Ringer's (Lactated Ringer's) 1,000 mls @ 125 mls/hr IV .Q8H [facility] Last Admin: 04/30/17 02:06 Dose: Not Given Ondansetron HCl (Zofran Inj) 4 mg IVP Q6 PRN PRN Reason: Nausea/Vomiting - Labs Labs: 04/30/17 05:30 04/30/17 05:30 PT 14.4 Seconds (9.8-13.1) H 04/28/17 23:10 INR 1.3 (0.9-1.2) H 04/28/17 23:10 APTT 29.6 Seconds (25.6-37.1) 04/28/17 23:10 - Constitutional Appears: Well, Non-toxic, No Acute Distress - Head Exam Head Exam: ATRAUMATIC, NORMAL INSPECTION - Eye Exam Eye Exam: Normal appearance - ENT Exam ENT Exam: Mucous Membranes Dry - Neck Exam Neck Exam: Full ROM - Respiratory Exam Respiratory Exam: NORMAL BREATHING PATTERN. absent: Decreased Breath Sounds, Prolonged Expiratory Phase, Rales, Rhonchi, Wheezes, Respiratory Distress, Stridor - Cardiovascular Exam Cardiovascular Exam: REGULAR RHYTHM, RRR, +S1, +S2 - GI/Abdominal Exam GI & Abdominal Exam: Tenderness, Normal Bowel Sounds Additional comments: Mild pain with palpation to the upper left and right quadrant; no rebound pain Severe pain illicited with palpation to the umbilicus region Ecchymosis noted superior to the umbilicus No palpable hard, tender mass at the umbilicus region - Neurological Exam Neurological Exam: Alert, Awake, Oriented x3 - Psychiatric Exam Psychiatric exam: Normal Affect, Normal Mood - Skin Skin Exam: Dry, Intact, Normal Color, Warm Assessment and Plan - Assessment and Plan (Free Text) Assessment: 51 y/o male with a PMHx remarkable for HIV, Hepatitis C, Anxiety/depression with gutierrez-umbilical abdominal pain 1 day s/p bedside hernia reduction Plan: 1) Gutierrez-umbilical abdominal pain -ABD U/S inconclusive -EKG- pending final report -Pain control, Dilaudid 0.5 mg PRN severe pain, Toradol 30mg moderate pain -Lipase 391 -Dr. Nieto reduced hernia in t-jelena and w/ ice (04/29/17) -CT abd/pelvis w/contrast Impression: 1) Fluid-filled loop of bowel and mesentery now resides within the periumbilical hernia without proximal bowel obstruction 2) Choleslithiasis, gallbladder wall thickening and pericholecystic fluid suggest acute cholecystitis 3) Cirrhotic liver, splenomegaly unchanged compared to the prior study -NPO status changed to clear liquid diet until midnight. NPO after midnight for OR tomorrow for umbilical hernia repair w/ Dr. 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 Strauss -GI consulted- Dr. Strauss, recommendations appreciated 6) DVT Prophylaxis -SCDs -D/W with general surgery, will give one dose of Lovenox today
--- NOTE | 2017-04-30 09:08 | CP.PCM.PN ---
<Driss Knowles - Last Filed: 04/30/17 09:04> Subjective - Date & Time of Evaluation Date of Evaluation: 04/30/17 Time of Evaluation: 06:30 - Subjective Subjective: General Surgery- Dr. Mojica Patient seen and examined at bedside this morning. No acute events overnight. Patient NPO. Pain better than yesterday, still present gutierrez-umbilical. Hernia reduced yesterday at bedside. patient currently passing gas and BM yesterday. Denies Fevers, chills chest pain, shortness of breath, nausea. Objective - Vital Signs/Intake and Output Vital Signs (last 24 hours): Temp Pulse Resp BP Pulse Ox 98.4 F 62 20 121/72 93 L 04/30/17 07:48 04/30/17 07:48 04/30/17 07:48 04/30/17 07:48 04/30/17 07:48 - Medications Medications: Current Medications Albuterol (Ventolin Hfa 90 Mcg/Actuation (8 G)) 2 puff IH Q4 PRN PRN Reason: Shortness of Breath Hydromorphone HCl (Dilaudid) 0.5 mg IVP Q4H PRN PRN Reason: Pain, severe (8-10) Last Admin: 04/30/17 05:22 Dose: 0.5 mg Hydromorphone HCl (Dilaudid) 0.25 mg IVP Q4H PRN PRN Reason: Pain, moderate (4-7) Lactated Ringer's (Lactated Ringer's) 1,000 mls @ 250 mls/hr IV .Q4H [facility] Last Admin: 04/29/17 17:09 Dose: 250 mls/hr Lactated Ringer's (Lactated Ringer's) 1,000 mls @ 125 mls/hr IV .Q8H [facility] Last Admin: 04/30/17 02:06 Dose: Not Given Ondansetron HCl (Zofran Inj) 4 mg IVP Q6 PRN PRN Reason: Nausea/Vomiting - Labs Labs: 04/30/17 05:30 04/30/17 05:30 PT 14.4 Seconds (9.8-13.1) H 04/28/17 23:10 INR 1.3 (0.9-1.2) H 04/28/17 23:10 APTT 29.6 Seconds (25.6-37.1) 04/28/17 23:10 - Constitutional Appears: Non-toxic, No Acute Distress - Eye Exam Eye Exam: EOMI. absent: Scleral icterus - Respiratory Exam Respiratory Exam: NORMAL BREATHING PATTERN. absent: Accessory Muscle Use, Respiratory Distress - Cardiovascular Exam Cardiovascular Exam: +S1, +S2. absent: Bradycardia, Tachycardia - GI/Abdominal Exam GI & Abdominal Exam: Soft, Tenderness, Hernia. absent: Distended, Firm, Guarding, Rigid, Mass Additional comments: Umbilical hernia present. Soft and currently reducible tender to palpation gutierrez-umbilical ecchymosis around umbilicus - Extremities Exam Extremities Exam: Normal Inspection. absent: Calf Tenderness - Neurological Exam Neurological Exam: Alert, Awake, Oriented x3 - Psychiatric Exam Psychiatric exam: Normal Affect - Skin Skin Exam: Normal Color, Warm Assessment and Plan - Assessment and Plan (Free Text) Assessment: 51 M incarcerated umbilical hernia reduction at bedside yesterday CT scan shows bowel still in defect Plan: - NPO - plan for OR tomorrow - GI/DVT ppx - IVF - Anti-emetic and pain control PRN - further recs per Dr. Galina Knowles PGY1 <Berto Mojica - Last Filed: 05/01/17 19:59> Objective - Vital Signs/Intake and Output Vital Signs (last 24 hours): Temp Pulse Resp BP Pulse Ox 98.9 F 74 19 110/61 95 05/01/17 00:00 05/01/17 00:00 05/01/17 00:00 05/01/17 00:00 05/01/17 00:00 - Labs Labs: 05/01/17 05:35 05/01/17 05:35 PT 15.4 Seconds (9.8-13.1) H 05/01/17 05:35 INR 1.4 (0.9-1.2) H 05/01/17 05:35 APTT 40.4 Seconds (25.6-37.1) H D 05/01/17 05:35 Attending/Attestation - Attestation I have personally seen and examined this patient.: Yes I have fully participated in the care of the patient.: Yes I have reviewed all pertinent clinical information, including history, physical exam and plan: Yes Notes (Text): Pt was seen and examined at bedside Agree with above note and assessment Pt is not clear for surgery due to End stage liver dis and HCC Will cancel OR today C/w current mx Plan d.w pt in detail. Risk and benefit explained in detail.
[2017-04-30] MEDS: ceFAZolin IV 1 gm in Dextrose 1 GM/50 ML BAG IVPB SCH ×2 (09:50→17:28)
--- NOTE | 2017-04-30 11:12 | RAD ---
PROCEDURE: CHEST RADIOGRAPH, 1 VIEW HISTORY: pre-op COMPARISON: Chest radiographs 03/04/2017. FINDINGS: LUNGS: No acute infiltrate bilaterally. Patient slightly rotated toward the left. PLEURA: No pneumothorax or pleural fluid seen. CARDIOVASCULAR: Normal. OSSEOUS STRUCTURES: No significant abnormalities. VISUALIZED UPPER ABDOMEN: Normal. OTHER FINDINGS: None. IMPRESSION: No interval acute cardiopulmonary disease appreciated.
[2017-04-30] MEDS ORDERED: Enoxaparin 40 mg Syringe SC ONE (12:34)
[2017-04-30 13:56] LABS: ALB/GLOB RATIO 0.9 (1.0-2.1); BILIRUBIN,TOTAL 3.9 mg/dl (0.2-1.3); TOTAL PROTEIN 6.7 G/DL (6.3-8.2)
--- NOTE | 2017-04-30 17:31 | CP.PCM.PCO ---
Physician Communication Note - Physician Communication Note Physician Communication Note: pt for OR tomorrow, NPO @ [place], please do not restart diet
--- NOTE | 2017-04-30 19:28 | CP.PCM.CON ---
<Samia Westlinnea - Last Filed: 04/30/17 19:49> History of Present Illness - History of Present Illness History of Present Illness: PGY4 Initial GI Consult ' Ramon Triana is a 51M w/ hx of HIV, chronic HCV treatment naive, cirrhosis who presented to the ER with complaints of abdominal pain. He reports the pain started 1 week ago after his liver biopsy. It was in the periumbilical area and was intermittent without any radiation. His abdominal pain progressively worsened along with complaints of generalized body aches. He returned to the ER on saturday and was diagnoised with influenza. His abdpain never resolved and then he noticed ecchymosis around his periumbilical area. It is alleviated with rest and exacerbated with movement or anything that increases intraabdominal pressure such as coughing/straining/flexing. He reports he has been having diarrhea during the week, but today it was pure water and reddish in color. Last BM was yesterday. He was diagnoised with having a possible incarcerated hernia and being further evaluated by surgery. He was recently seen at Dr. Strauss office as an outpatient for evaluation of CT abdomen which revealed numerous liver lesions with the largest > 2cm. His labwork also revealed F4 cirrhotic changes. His recent liver biopsy.revealed poorly differentiated HCC. He had a an EGD/colonoscopy on 04/02/2107 which revealed a non-bleeding superficial ulcer in the anterior wall of the gastric antrum, non-bleeding erosions, no varices, and H. pylori negative. His colonoscopy revealed a 5mm tubular adenoma in the ascending colon. He was also treated for C. diff with flagyl on 04/03/17 and had resolution of symptoms. PMH: HepC, HIV,depression, anxiety, chronic gastritis, hx of substance abuse ( last use 5 years ago) PSH: Liver biopsy, EGD, colonoscopy performed by Dr. Adam. ALL: NKDA SocialHx: Denies current illicit drug use. occasional ETOH and tobacco use (6-7 cigarettes/day). 12 point ROS conducted neg other than above Past Patient History - Past Medical History & Family History Past Medical History?: Yes - Past Social History Alcohol: None Drugs: Denies (clean for 5years from heroin abuse) - CARDIAC Hx Cardiac Disorders: No - PULMONARY Hx Asthma: Yes - NEUROLOGICAL Hx Neurological Disorder: Yes Hx Dizziness: Yes Other/Comment: NUMBNESS/CRAMPS LEGS - HEENT Hx HEENT Problems: No - RENAL Hx Chronic Kidney Disease: No - ENDOCRINE/METABOLIC Hx Endocrine Disorders: No - HEMATOLOGICAL/ONCOLOGICAL Hx Human Immunodeficiency Virus (HIV): Yes - INTEGUMENTARY Hx Dermatological Problems: No - MUSCULOSKELETAL/RHEUMATOLOGICAL Hx Arthritis: Yes Hx Rheumatoid Arthritis: Yes (hands, knees, ankles) - GASTROINTESTINAL Hx Gastrointestinal Disorders: No - GENITOURINARY/GYNECOLOGICAL Hx Genitourinary Disorders: No - PSYCHIATRIC Hx Anxiety: Yes Hx Depression: Yes - SURGICAL HISTORY Hx Surgeries: Yes - ANESTHESIA Hx Anesthesia: Yes Hx Anesthesia Reactions: No Hx Malignant Hyperthermia: No Meds Allergies/Adverse Reactions: Allergies Allergy/AdvReac Type Severity Reaction Status Date / Time No Known Allergies Allergy Verified 04/29/17 00:44 - Medications Medications: Current Medications Albuterol (Ventolin Hfa 90 Mcg/Actuation (8 G)) 2 puff IH Q4 PRN PRN Reason: Shortness of Breath Hydromorphone HCl (Dilaudid) 0.5 mg IVP Q4H PRN PRN Reason: Pain, severe (8-10) Last Admin: 04/30/17 17:39 Dose: 0.5 mg Hydromorphone HCl (Dilaudid) 0.25 mg IVP Q4H PRN PRN Reason: Pain, moderate (4-7) Lactated Ringer's (Lactated Ringer's) 1,000 mls @ 250 mls/hr IV .Q4H [facility] Last Admin: 04/30/17 17:27 Dose: 250 mls/hr Lactated Ringer's (Lactated Ringer's) 1,000 mls @ 125 mls/hr IV .Q8H [facility] Last Admin: 04/30/17 17:44 Dose: 125 mls/hr Cefazolin Sodium/Dextrose (Ancef Iv 1 Gm Duplex) 1 gm in 50 mls @ 50 mls/hr IVPB Q8 [facility] PRN Reason: Protocol Last Admin: 04/30/17 17:28 Dose: 50 mls/hr Ondansetron HCl (Zofran Inj) 4 mg IVP Q6 PRN PRN Reason: Nausea/Vomiting Physical Exam - Constitutional Appears: Well, No Acute Distress - Head Exam Head Exam: ATRAUMATIC, NORMOCEPHALIC - Eye Exam Eye Exam: Normal appearance - ENT Exam ENT Exam: Mucous Membranes Moist - Respiratory Exam Respiratory Exam: Clear to Auscultation Bilateral, NORMAL BREATHING PATTERN. absent: Rales, Rhonchi, Wheezes, Respiratory Distress - Cardiovascular Exam Cardiovascular Exam: REGULAR RHYTHM, +S1, +S2 - GI/Abdominal Exam GI & Abdominal Exam: Normal Bowel Sounds, Soft. absent: Distended, Organomegaly , Rebound, Rigid Additional comments: umbilical hernia noted with ecchymosis around the periumbical site with reducible bowel. - Extremities Exam Extremities exam: Negative for: joint swelling, pedal edema - Psychiatric Exam Psychiatric exam: Normal Affect, Normal Mood - Skin Skin Exam: Dry, Intact, Normal Color, Warm Results - Vital Signs Recent Vital Signs: Last Vital Signs Temp 99.1 F 04/30/17 16:39 Pulse 77 04/30/17 16:39 Resp 18 04/30/17 16:39 BP 112/62 04/30/17 16:39 Pulse Ox 96 04/30/17 16:39 - Labs Result Diagrams: 04/30/17 05:30 04/30/17 05:30 Labs: Laboratory Results - last 24 hr 04/30/17 04/30/17 04/30/17 05:30 05:30 13:08 WBC 8.0 RBC 3.78 L Hgb 12.4 Hct 37.5 MCV 99.1 H MCH 32.9 H MCHC 33.2 RDW 13.6 Plt Count 137 PT 14.9 H INR 1.3 H Sodium 138 Potassium 4.6 Chloride 103 Carbon Dioxide 28 Anion Gap 11 BUN 17 Creatinine 0.8 Est GFR ( Amer) > 60 Est GFR (Non-Af Amer) > 60 Random Glucose 74 L Calcium 7.9 L Total Bilirubin Direct Bilirubin AST ALT Alkaline Phosphatase Total Protein Albumin Globulin Albumin/Globulin Ratio 04/30/17 13:08 WBC RBC Hgb Hct MCV MCH MCHC RDW Plt Count PT INR Sodium Potassium Chloride Carbon Dioxide Anion Gap BUN Creatinine Est GFR ( Amer) Est GFR (Non-Af Amer) Random Glucose Calcium Total Bilirubin 3.9 H Direct Bilirubin 2.7 H AST 114 H D ALT 63 Alkaline Phosphatase 186 H Total Protein 6.7 Albumin 3.2 L Globulin 3.5 Albumin/Globulin Ratio 0.9 L Assessment & Plan - Assessment and Plan (Free Text) Assessment: Ramon Triana is a 51M w/ recently diagnosed HCC, chronic HCV liver cirrhosis who presented to [facility] for pain around a umbilical hernia. Hernia is reducible with no clinical evidence of bowel strangulation. He need further ork- up and follow-up in [facility] to his newly diagnoised HCC. Poorly differentiated HCC Periumbilical hernia chronic HCV Liver cirrhosis 2/2 to the above Plan: MELD 04/28/17 17 -daily MELD labs -pt needs further outpt HCC work-up and treat -needs to follow-up with Dr. Strauss as an oupt -needs to follow-up with [facility] for liver transplant -Needs to follow-up with Hem/Onc Dr. West in [place] as an oupt for further tx and plan -will get CT chest and bone scan for staging -hernia plans as per surgery -rest of care as per surgery -discussed diagnoisis and recommendations extentively with the pt -will send the pt for c.diff toxin, in light of recent infection and reports of diarrhea D/W Dr. Strauss <Carlos A WALTON,[facility] - Last Filed: 04/30/17 23:33> Meds - Medications Medications: Current Medications Albuterol (Ventolin Hfa 90 Mcg/Actuation (8 G)) 2 puff IH Q4 PRN PRN Reason: Shortness of Breath Hydromorphone HCl (Dilaudid) 0.25 mg IVP Q4H PRN PRN Reason: Pain, moderate (4-7) Hydromorphone HCl (Dilaudid) 0.5 mg IVP Q4H PRN PRN Reason: Pain, severe (8-10) Last Admin: 04/30/17 22:04 Dose: 0.5 mg Lactated Ringer's (Lactated Ringer's) 1,000 mls @ 250 mls/hr IV .Q4H [facility] Last Admin: 04/30/17 17:27 Dose: 250 mls/hr Lactated Ringer's (Lactated Ringer's) 1,000 mls @ 125 mls/hr IV .Q8H [facility] Last Admin: 04/30/17 17:44 Dose: 125 mls/hr Cefazolin Sodium/Dextrose (Ancef Iv 1 Gm Duplex) 1 gm in 50 mls @ 50 mls/hr IVPB Q8 [facility] PRN Reason: Protocol Last Admin: 04/30/17 17:28 Dose: 50 mls/hr Ondansetron HCl (Zofran Inj) 4 mg IVP Q6 PRN PRN Reason: Nausea/Vomiting Results - Vital Signs Recent Vital Signs: Last Vital Signs Temp 99.1 F 04/30/17 16:39 Pulse 77 04/30/17 16:39 Resp 18 04/30/17 16:39 BP 112/62 04/30/17 16:39 Pulse Ox 96 04/30/17 16:39 - Labs Result Diagrams: 04/30/17 05:30 04/30/17 05:30 Labs: Laboratory Results - last 24 hr 04/30/17 04/30/17 04/30/17 05:30 05:30 13:08 WBC 8.0 RBC 3.78 L Hgb 12.4 Hct 37.5 MCV 99.1 H MCH 32.9 H MCHC 33.2 RDW 13.6 Plt Count 137 PT 14.9 H INR 1.3 H Sodium 138 Potassium 4.6 Chloride 103 Carbon Dioxide 28 Anion Gap 11 BUN 17 Creatinine 0.8 Est GFR ( Amer) > 60 Est GFR (Non-Af Amer) > 60 Random Glucose 74 L Calcium 7.9 L Total Bilirubin Direct Bilirubin AST ALT Alkaline Phosphatase Total Protein Albumin Globulin Albumin/Globulin Ratio 04/30/17 13:08 WBC RBC Hgb Hct MCV MCH MCHC RDW Plt Count PT INR Sodium Potassium Chloride Carbon Dioxide Anion Gap BUN Creatinine Est GFR ( Amer) Est GFR (Non-Af Amer) Random Glucose Calcium Total Bilirubin 3.9 H Direct Bilirubin 2.7 H AST 114 H D ALT 63 Alkaline Phosphatase 186 H Total Protein 6.7 Albumin 3.2 L Globulin 3.5 Albumin/Globulin Ratio 0.9 L Attending/Attestation - Attestation I have personally seen and examined this patient.: Yes I have fully participated in the care of the patient.: Yes I have reviewed all pertinent clinical information: Yes Notes (Text): 04/30/17 23:29 Patient seen at bedside on rounds. This is a 51 yr old M with chronic HCV treatment naive with liver lesion which was biopsied and was compatible with HCC. He was initially admitted for umbilical hernia. Hernia is reducible with no clinical evidence of bowel strangulation. Discussed with patient at bedside needs emergent start of transplant evaluation and further work up for HCC. Will order Chest CT and bone scan. He has appointment with [facility] liver transplant center next week. Will hold HCv treatment. He was referred to oncologist. Discussed with surgical team regarding gutierrez operative risk of abdominal surgery with decompensated cirrhosis unless its emergent.
[2017-05-01] MEDS: ceFAZolin IV 1 gm in Dextrose 1 GM/50 ML BAG IVPB SCH ×2 (00:08→08:56)
[2017-05-01 01:20] VITALS: BP 110/61; PULSE 74; RESP 19; TEMP 98.9; O2SAT 95
[2017-05-01] MEDS: Lactated Ringer's 1,000 ML IV SCH (02:07)
[2017-05-01 06:40] LABS: BASO # 0.1 K/uL (0.0-0.2); BASO % 1.2 % (0.0-2.0); EOS # 0.1 K/uL (0.0-0.7); HEMATOCRIT 34.3 % (35.0-51.0); LYMPH # 1.2 K/uL (1.0-4.3); LYMPH % 23.2 % (20.0-40.0); MEAN CELL VOLUME 99.3 fl (80.0-94.0); MEAN CORPUSCULAR HEMOGLOBIN 32.8 pg (27.0-31.0); MEAN PLATELET VOLUME 9.4 fl (7.2-11.7); MONO # 0.6 K/uL (0.0-0.8); MONO % 11.1 % (0.0-10.0); NEUT # 3.1 K/uL (1.8-7.0); NEUT % 62.5 % (50.0-75.0); RED CELL DISTRIBUTION WIDTH 13.5 % (11.5-14.5)
[2017-05-01 06:43] LABS: ALKALINE PHOSPHATASE 159 U/L (38-126); ALT/SGPT 59 U/L (21-72); AST/SGOT 110 U/L (17-59); BILIRUBIN,TOTAL 2.1 mg/dl (0.2-1.3); BLOOD UREA NITROGEN 14 mg/dl (9-20); CALCIUM 7.6 mg/dL (8.4-10.2); CARBON DIOXIDE 28 mmol/L (22-30); CHLORIDE 103 mmol/L (98-107); GFR AFRICAN-AMERICAN > 60; GLUCOSE,RANDOM 88 mg/dL (75-110); POTASSIUM 3.7 MMOL/L (3.6-5.0); SODIUM 136 mmol/l (132-148); TOTAL PROTEIN 5.9 G/DL (6.3-8.2)
[2017-05-01 06:48] LABS: ALB/GLOB RATIO 0.9 (1.0-2.1)
[2017-05-01 07:14] LABS: PARTIAL THROMBOPLASTIN TIME 40.4 Seconds (25.6-37.1)
--- NOTE | 2017-05-01 10:03 | CP.PCM.PN ---
Subjective - Date & Time of Evaluation Date of Evaluation: 05/01/17 Time of Evaluation: 08:00 - Subjective Subjective: Progress Note for Family Medicine- Dr. Palencia 51 y.o male with PMHx remarkable for HIV, Hepatitis C, anxiety, and depression seen for jennifer-umbilical abdominal pain. Patient is seen out of bed walking from the bathroom, AA0x3, and NAD. Patient reports that his pain has improved from yesterday. He rates his pain 6/10 today, states that the pain is localized to the central abdominal compared to entire abdominal before. Patient reports that pain is worse with fast movement. Reports that pain has decreased compared to yesterday with coughing, bending, or stretching. Patient reports he is tolerating the liquid diet well. Denies nausea, vomitting, diarrhea. Patient reports that he was able to have a BM yesterday. Describes color brown, solid, no red color noted. Reports no problems with voiding. Patient denies n/v/cp/ chills/headaches/fever/urinary symptoms. Denies muscle weakness. Objective - Vital Signs/Intake and Output Vital Signs (last 24 hours): Temp Pulse Resp BP Pulse Ox 98.9 F 74 19 110/61 95 05/01/17 00:00 05/01/17 00:00 05/01/17 00:00 05/01/17 00:00 05/01/17 00:00 - Medications Medications: Current Medications Albuterol (Ventolin Hfa 90 Mcg/Actuation (8 G)) 2 puff IH Q4 PRN PRN Reason: Shortness of Breath Last Admin: 05/01/17 00:08 Dose: 2 puff Hydromorphone HCl (Dilaudid) 0.25 mg IVP Q4H PRN PRN Reason: Pain, moderate (4-7) Hydromorphone HCl (Dilaudid) 0.5 mg IVP Q4H PRN PRN Reason: Pain, severe (8-10) Last Admin: 05/01/17 06:16 Dose: 0.5 mg Lactated Ringer's (Lactated Ringer's) 1,000 mls @ 250 mls/hr IV .Q4H [facility] Last Admin: 04/30/17 17:27 Dose: 250 mls/hr Lactated Ringer's (Lactated Ringer's) 1,000 mls @ 125 mls/hr IV .Q8H [facility] Last Admin: 05/01/17 02:07 Dose: 125 mls/hr Cefazolin Sodium/Dextrose (Ancef Iv 1 Gm Duplex) 1 gm in 50 mls @ 50 mls/hr IVPB Q8 [facility] PRN Reason: Protocol Last Admin: 05/01/17 08:56 Dose: 50 mls/hr Ondansetron HCl (Zofran Inj) 4 mg IVP Q6 PRN PRN Reason: Nausea/Vomiting - Labs Labs: 05/01/17 05:35 05/01/17 05:35 PT 15.4 Seconds (9.8-13.1) H 05/01/17 05:35 INR 1.4 (0.9-1.2) H 05/01/17 05:35 APTT 40.4 Seconds (25.6-37.1) H D 05/01/17 05:35 - Constitutional Appears: Well, Non-toxic, No Acute Distress - Head Exam Head Exam: ATRAUMATIC, NORMAL INSPECTION - ENT Exam Additional comments: mucous membrane dry, improving - Neck Exam Neck Exam: Full ROM - Respiratory Exam Respiratory Exam: NORMAL BREATHING PATTERN. absent: Decreased Breath Sounds, Rales, Rhonchi, Wheezes, Respiratory Distress, Stridor - Cardiovascular Exam Cardiovascular Exam: REGULAR RHYTHM, RRR, +S1, +S2 - GI/Abdominal Exam GI & Abdominal Exam: Soft, Tenderness, Normal Bowel Sounds Additional comments: Moderate pain illicited with palpation to the umbilicus region Ecchymosis noted superior to the umbilicus, improving in color [employer] sign + No palpable hard, tender mass at the umbilicus region No pain with palpation to the upper left and right quadrant; no rebound pain - Neurological Exam Neurological Exam: Alert, Awake, Oriented x3 - Psychiatric Exam Psychiatric exam: Normal Affect, Normal Mood - Skin Skin Exam: Dry, Intact, Normal Color, Warm Assessment and Plan - Assessment and Plan (Free Text) Assessment: 51 y/o male with a PMHx remarkable for HIV, Hepatitis C, Anxiety/depression with jennifer-umbilical abdominal pain 2 day s/p bedside hernia reduction, recently diagnosed HCC, chronic HCV liver cirrhosis Plan: 1) HCC -GI recommendations per Carlos A: -daily MELD labs -f/u with Dr. Strauss as an outpt -needs further outpt HCC work-up and treat -f/u [facility] for liver transplant -f/u with Hem/Onc Dr. 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 Strauss as an outpatient 3) Jennifer-umbilical abdominal pain -ABD U/S inconclusive -EKG- pending final report -Pain control, Dilaudid 0.5 mg PRN severe pain, Toradol 30mg moderate pain -Lipase 391 -Dr. Nieto reduced hernia in t-jelena and w/ ice (04/29/17) -CT abd/pelvis w/contrast Impression: 1) Fluid-filled loop of bowel and mesentery now resides within the periumbilical hernia without proximal bowel obstruction 2) Choleslithiasis, gallbladder wall thickening and pericholecystic fluid suggest acute cholecystitis 3) Cirrhotic liver, splenomegaly unchanged compared to the prior study -C/W Dilaudid PRN for pain management while in house -Pt tolerated Liquid well. Diet advance to regular diet. -waiting surgery recommendations, thank you 4) Diarrhea -occult blood pending results -C diff toxin a b stat pending -ova and parasite pending 5) Dehydration -C/W lactate Ringer IV 250mls/hr 6) Asymptomatic HIV -CD4 on 10: 403 -Diet advance to regular diet. Resume home meds 7) DVT Prophylaxis -SCDs -D/W with general surgery, will give one dose of Lovenox today
[2017-05-01] MEDS ORDERED: Iohexol 300 100 ML IJ ONE (10:37)
[2017-05-01] MEDS ORDERED: Sodium Chloride 0.9% 50 ML IV ONE (10:37)
--- NOTE | 2017-05-01 11:01 | CP.PCM.PN ---
<Jaylene West - Last Filed: 05/01/17 11:08> Subjective - Date & Time of Evaluation Date of Evaluation: 05/01/17 Time of Evaluation: 07:00 - Subjective Subjective: PGY4 GI consult Pt seen and examined bedside No new complaints He reports some resolution of his abd pain He reports BM last night and flatus tolerating regular diet ROS: 10 point ROS conducted, neg other than above Objective - Vital Signs/Intake and Output Vital Signs (last 24 hours): Temp Pulse Resp BP Pulse Ox 98.9 F 74 19 110/61 95 05/01/17 00:00 05/01/17 00:00 05/01/17 00:00 05/01/17 00:00 05/01/17 00:00 - Medications Medications: Current Medications Albuterol (Ventolin Hfa 90 Mcg/Actuation (8 G)) 2 puff IH Q4 PRN PRN Reason: Shortness of Breath Last Admin: 05/01/17 00:08 Dose: 2 puff Darunavir (Prezista) 800 mg PO DAILY [facility] Dolutegravir Sodium (Tivicay) 50 mg PO DAILY [facility] Escitalopram Oxalate (Lexapro) 5 mg PO DAILY [facility] Gabapentin (Neurontin) 300 mg PO TID [facility] Hydromorphone HCl (Dilaudid) 0.25 mg IVP Q4H PRN PRN Reason: Pain, moderate (4-7) Hydromorphone HCl (Dilaudid) 0.5 mg IVP Q4H PRN PRN Reason: Pain, severe (8-10) Last Admin: 05/01/17 06:16 Dose: 0.5 mg Lactated Ringer's (Lactated Ringer's) 1,000 mls @ 250 mls/hr IV .Q4H [facility] Last Admin: 04/30/17 17:27 Dose: 250 mls/hr Lactated Ringer's (Lactated Ringer's) 1,000 mls @ 125 mls/hr IV .Q8H [facility] Last Admin: 05/01/17 02:07 Dose: 125 mls/hr Cefazolin Sodium/Dextrose (Ancef Iv 1 Gm Duplex) 1 gm in 50 mls @ 50 mls/hr IVPB Q8 [facility] PRN Reason: Protocol Last Admin: 05/01/17 08:56 Dose: 50 mls/hr Mirtazapine (Remeron) 15 mg PO HS [facility] Ondansetron HCl (Zofran Inj) 4 mg IVP Q6 PRN PRN Reason: Nausea/Vomiting Ondansetron HCl (Zofran Odt) 4 mg PO Q6 PRN PRN Reason: Nausea/Vomiting Propranolol HCl (Inderal) 20 mg PO HS [facility] Ritonavir (Norvir) 100 mg PO DAILY [facility] - Labs Labs: 05/01/17 05:35 05/01/17 05:35 PT 15.4 Seconds (9.8-13.1) H 05/01/17 05:35 INR 1.4 (0.9-1.2) H 05/01/17 05:35 APTT 40.4 Seconds (25.6-37.1) H D 05/01/17 05:35 Assessment and Plan - Assessment and Plan (Free Text) Assessment: Ramon Triana is a 51M w/ recently diagnosed HCC, chronic HCV liver cirrhosis who presented to [facility] for pain around a umbilical hernia. Hernia is reducible with no clinical evidence of bowel strangulation. He need further ork- up and follow-up in [facility] to his newly diagnoised HCC. Poorly differentiated HCC Periumbilical hernia chronic HCV Liver cirrhosis 2/2 to the above Plan: MELD 05/01/17 14 -daily MELD labs -pt needs further outpt HCC work-up and treat -needs to follow-up with Dr. Strauss as an oupt -needs to follow-up with [facility] for liver transplant -Needs to follow-up with Hem/Onc Dr. West in [place] as an oupt for further tx and plan -will get CT chest and bone scan for staging -hernia plans as per surgery -rest of care as per surgery -discussed diagnoisis and recommendations extensively with the pt -okay to d/c from GI standpoint D/W Dr. Strauss <Don Strauss MD - Last Filed: 05/01/17 17:27> Objective - Vital Signs/Intake and Output Vital Signs (last 24 hours): Temp Pulse Resp BP Pulse Ox 98.9 F 74 19 110/61 95 05/01/17 00:00 05/01/17 00:00 05/01/17 00:00 05/01/17 00:00 05/01/17 00:00 - Labs Labs: 05/01/17 05:35 05/01/17 05:35 PT 15.4 Seconds (9.8-13.1) H 05/01/17 05:35 INR 1.4 (0.9-1.2) H 05/01/17 05:35 APTT 40.4 Seconds (25.6-37.1) H D 05/01/17 05:35 Attending/Attestation - Attestation I have personally seen and examined this patient.: Yes I have fully participated in the care of the patient.: Yes I have reviewed all pertinent clinical information, including history, physical exam and plan: Yes Notes (Text): 05/01/17 17:27 Patient seen at bedside on rounds. This is a 51 yr old M with chronic HCV treatment naive with liver lesion which was biopsied and was compatible with HCC. He was initially admitted for umbilical hernia. Hernia is reducible with no clinical evidence of bowel strangulation. Discussed with patient at bedside needs emergent start of transplant evaluation and further work up for HCC. Will order Chest CT and bone scan. He has appointment with [facility] liver transplant center next week. Will hold HCv treatment. He was referred to oncologist. Discussed with surgical team regarding gutierrez operative risk of abdominal surgery with decompensated cirrhosis unless its emergent.
--- NOTE | 2017-05-01 11:18 | CP.PCM.DIS ---
Provider - Provider Date of Admission: 04/29/17 16:17 Attending physician: Minda Palencia MD Consults: Surgery- Dr. Mojica Gastroenterology- Dr. Strauss Time Spent in preparation of Discharge (in minutes): 30 Diagnosis - Discharge Diagnosis (1) HCC (hepatocellular carcinoma) Status: Acute (2) Periumbilical abdominal pain Status: Acute (3) Hepatitis C Status: Chronic Hospital Course - Lab Results Lab Results: Micro Results 04/28/17 23:40 Blood Blood Culture - Preliminary NO GROWTH AFTER 48 HOURS 04/28/17 23:30 Blood Blood Culture - Preliminary NO GROWTH AFTER 48 HOURS 04/29/17 00:01 Urine Urine Culture - Final No Growth (<1,000 CFU/ML) Most Recent Lab Values WBC 5.0 K/uL (4.8-10.8) 05/01/17 05:35 RBC 3.46 Mil/uL (4.40-5.90) L 05/01/17 05:35 Hgb 11.3 g/dL (12.0-18.0) L 05/01/17 05:35 Hct 34.3 % (35.0-51.0) L 05/01/17 05:35 MCV 99.3 fl (80.0-94.0) H 05/01/17 05:35 MCH 32.8 pg (27.0-31.0) H 05/01/17 05:35 MCHC 33.0 g/dL (33.0-37.0) 05/01/17 05:35 RDW 13.5 % (11.5-14.5) 05/01/17 05:35 Plt Count 125 K/uL (130-400) L 05/01/17 05:35 MPV 9.4 fl (7.2-11.7) 05/01/17 05:35 Neut % (Auto) 62.5 % (50.0-75.0) 05/01/17 05:35 Lymph % (Auto) 23.2 % (20.0-40.0) 05/01/17 05:35 Cook % (Auto) 11.1 % (0.0-10.0) H 05/01/17 05:35 Eos % (Auto) 2.0 % (0.0-4.0) 05/01/17 05:35 Baso % (Auto) 1.2 % (0.0-2.0) 05/01/17 05:35 Neut # 3.1 K/uL (1.8-7.0) 05/01/17 05:35 Lymph # 1.2 K/uL (1.0-4.3) 05/01/17 05:35 Cook # 0.6 K/uL (0.0-0.8) 05/01/17 05:35 Eos # 0.1 K/uL (0.0-0.7) 05/01/17 05:35 Baso # 0.1 K/uL (0.0-0.2) 05/01/17 05:35 PT 15.4 Seconds (9.8-13.1) H 05/01/17 05:35 INR 1.4 (0.9-1.2) H 05/01/17 05:35 APTT 40.4 Seconds (25.6-37.1) H D 05/01/17 05:35 Sodium 136 mmol/l (132-148) 05/01/17 05:35 Potassium 3.7 MMOL/L (3.6-5.0) 05/01/17 05:35 Chloride 103 mmol/L (98-107) 05/01/17 05:35 Carbon Dioxide 28 mmol/L (22-30) 05/01/17 05:35 Anion Gap 9 (10-20) L 05/01/17 05:35 BUN 14 mg/dl (9-20) 05/01/17 05:35 Creatinine 0.7 mg/dl (0.8-1.5) L 05/01/17 05:35 Est GFR ( Amer) > 60 05/01/17 05:35 Est GFR (Non-Af Amer) > 60 05/01/17 05:35 Random Glucose 88 mg/dL (75-110) 05/01/17 05:35 Lactic Acid 1.0 MMOL/L (0.7-2.1) 04/29/17 17:15 Calcium 7.6 mg/dL (8.4-10.2) L 05/01/17 05:35 Phosphorus 2.8 mg/dl (2.5-4.5) 04/28/17 23:10 Magnesium 2.1 MG/DL (1.6-2.3) 04/28/17 23:10 Total Bilirubin 2.1 mg/dl (0.2-1.3) H 05/01/17 05:35 Direct Bilirubin 2.7 mg/ml (0.0-0.4) H 04/30/17 13:08 AST 110 U/L (17-59) H 05/01/17 05:35 ALT 59 U/L (21-72) 05/01/17 05:35 Alkaline Phosphatase 159 U/L (38-126) H 05/01/17 05:35 Lactate Dehydrogenase 384 U/L (313-618) 04/29/17 09:20 Total Protein 5.9 G/DL (6.3-8.2) L 05/01/17 05:35 Albumin 2.7 g/dL (3.5-5.0) L 05/01/17 05:35 Globulin 3.1 gm/dL (2.2-3.9) 05/01/17 05:35 Albumin/Globulin Ratio 0.9 (1.0-2.1) L 05/01/17 05:35 Lipase 391 U/L (23-300) H 04/28/17 23:10 Urine Color Sita (YELLOW) 04/29/17 00:01 Urine Clarity Cloudy (Clear) 04/29/17 00:01 Urine pH 5.0 (5.0-8.0) 04/29/17 00:01 Ur Specific [place] 1.029 (1.003-1.030) 04/29/17 00:01 Urine Protein 30 mg/dL (NEGATIVE) 04/29/17 00:01 Urine Glucose (UA) Neg mg/dL (Normal) 04/29/17 00:01 Urine Ketones Negative mg/dL (NEGATIVE) 04/29/17 00:01 Urine Blood Negative (NEGATIVE) 04/29/17 00:01 Urine Nitrate Negative (NEGATIVE) 04/29/17 00:01 Urine Bilirubin Small (NEGATIVE) 04/29/17 00:01 Urine Urobilinogen 4.0 mg/dL (0.2-1.0) 04/29/17 00:01 Ur Leukocyte Esterase Neg Jorge A/uL (Negative) 04/29/17 00:01 Urine RBC (Auto) 3 /hpf (0-3) 04/29/17 00:01 Urine Microscopic WBC 3 /hpf (0-5) 04/29/17 00:01 Urine Bacteria Rare (<OCC) 04/29/17 00:01 Urine Opiates Screen Negative (NEGATIVE) 04/29/17 00:01 Urine Methadone Screen Negative (NEGATIVE) 04/29/17 00:01 Ur Barbiturates Screen Negative (NEGATIVE) 04/29/17 00:01 Ur Phencyclidine Scrn Negative (NEGATIVE) 04/29/17 00:01 Ur Amphetamines Screen Negative (NEGATIVE) 04/29/17 00:01 U Benzodiazepines Scrn Negative (NEGATIVE) 04/29/17 00:01 U Oth Cocaine Metabols Negative (NEGATIVE) 04/29/17 00:01 U Cannabinoids Screen Negative (NEGATIVE) 04/29/17 00:01 Blood Type A NEGATIVE 04/28/17 23:10 Blood Type Confirm A NEGATIVE 04/29/17 01:05 Antibody Screen Negative 04/28/17 23:10 BBK History Checked No verified bt 04/28/17 23:10 - Hospital Course Hospital Course: 51 y/o male with a PMHx remarkable for HIV, Hepatitis C, Anxiety/depression admitted for gutierrez-umbilical abdominal pain. Patient was found to have pain secondary to umbilical hernia with strangulation/incarceration. Dr. Nieto was able to reduced the hernia at bedside (04/29/17). Post CT abd shows remaining fluid-filled loop of bowel and mesentery now resides within the periumbilical hernia without proximal bowel obstruction. NPO diet advanced to Liquid and eventually to Regular diet without complications. During the hospital stay, patient diagnosed with HCC and chronic HCV liver cirrhosis following the outpatient liver biopsy from Dr. Strauss 2 weeks prior. Decision by Carlos A was made to be on liver transplant list. Ct and bone scan ordered for staging and pending results. Also, pt complains of recent week long diarrhea. To r/o c.diff, ova and parasite, c diff toxin a b, occult blood ordered and pending. Able to produce BM yesterday-no diarrhea. Patient pain improved clinically and per GI and Surgery, patient is cleared for discharged with close followup with GI Dr. Strauss for further HCC workup and treatment. F/U Hem/Onc Dr. West. Per Surgery, no surgical intervention at this time. Education on hernia reduction technique. Pt will f/u at [facility]. Also, pt will f/u with PCP. Discharge Exam - Head Exam Head Exam: ATRAUMATIC, NORMAL INSPECTION - Eye Exam Eye Exam: Normal appearance - ENT Exam ENT Exam: Mucous Membranes Dry - Neck Exam Neck exam: Full Rom - Respiratory Exam Respiratory Exam: NORMAL BREATHING PATTERN - Cardiovascular Exam Cardiovascular Exam: REGULAR RHYTHM, RRR, +S1, +S2 - GI/Abdominal Exam GI & Abdominal Exam: Normal Bowel Sounds Additional comments: Moderate pain illicited with palpation to the umbilicus region Ecchymosis noted superior to the umbilicus, improving in color [place] sign + No palpable hard, tender mass at the umbilicus region No pain with palpation to the upper left and right quadrant; no rebound pain - Extremities Exam Extremities exam: normal capillary refill - Neurological Exam Neurological exam: Alert, Oriented x3 - Psychiatric Exam Psychiatric exam: Normal Affect, Normal Mood - Skin Skin Exam: Dry, Intact, Normal Color, Warm Discharge Plan - Follow Up Plan Disposition: HOME/ ROUTINE Instructions: Liver Transplant (DC), Hepatitis C (DC), Liver Cancer (DC) Additional Instructions: -Pt to f/u with PCP -Pt to f/u with Dr. Strauss as an outpatient -Will need further HCC work-up and treat -f/u c.diff toxin, occlude -Will f/u with [facility] for liver transplant -Will f/u with Hem/Onc Dr. West ([place]) as outpt for further tx and plan -f/u with CT chest and bone scan for staging -Per General Surgery recommendations: no surgical intervention at this time cleared for discharge from surgical standpoint will f/u at [facility] -General surgery demonstrated and educated pt on umbilical hernia reduction technique -ER precaution given -Resume regular diet -Take Ibuprofen 600mg PO for pain Medication reconciled. Medication List: Propranolol 20mg PO HS CLARI Darunavir 800mg PO Daily Dolutegravir Sodium 50mg PO Daily Ritonavir 100mg PO Daily Escitalopram Oxalate 5mg PO Daily CLARI Mirtazapine 15mg PO HS CLARI Gabapentin 300mg PO TID CLARI Albuterol Ventolin Hfa 90 Mcg/Actuation 2 puff IH q4 PRN SOB Ibuprofen 600 mg PO Tab PRN Referrals: Carlos A WALTON,MD Don [Medical Doctor] - Shantanu Gonzalez MD [Family Provider] -
--- NOTE | 2017-05-01 11:28 | CP.PCM.PN ---
<SergioNeelam - Last Filed: 05/01/17 11:41> Subjective - Date & Time of Evaluation Date of Evaluation: 05/01/17 Time of Evaluation: 11:24 - Subjective Subjective: General Surgery Dr. Mojica Pt S&E @bedside. NAEO. surgery scheduled for today canceled 2/2 liver disease. Pt denies F/C, N/V, D/C. tolerating diet. (+)Flatus/BM. Objective - Vital Signs/Intake and Output Vital Signs (last 24 hours): Temp Pulse Resp BP Pulse Ox 98.9 F 74 19 110/61 95 05/01/17 00:00 05/01/17 00:00 05/01/17 00:00 05/01/17 00:00 05/01/17 00:00 - Medications Medications: Current Medications Albuterol (Ventolin Hfa 90 Mcg/Actuation (8 G)) 2 puff IH Q4 PRN PRN Reason: Shortness of Breath Last Admin: 05/01/17 00:08 Dose: 2 puff Darunavir (Prezista) 800 mg PO DAILY CLARI Dolutegravir Sodium (Tivicay) 50 mg PO DAILY CLARI Escitalopram Oxalate (Lexapro) 5 mg PO DAILY CLARI Gabapentin (Neurontin) 300 mg PO TID CLARI Hydromorphone HCl (Dilaudid) 0.25 mg IVP Q4H PRN PRN Reason: Pain, moderate (4-7) Hydromorphone HCl (Dilaudid) 0.5 mg IVP Q4H PRN PRN Reason: Pain, severe (8-10) Last Admin: 05/01/17 11:18 Dose: 0.5 mg Lactated Ringer's (Lactated Ringer's) 1,000 mls @ 250 mls/hr IV .Q4H CLARI Last Admin: 04/30/17 17:27 Dose: 250 mls/hr Lactated Ringer's (Lactated Ringer's) 1,000 mls @ 125 mls/hr IV .Q8H CLARI Last Admin: 05/01/17 02:07 Dose: 125 mls/hr Cefazolin Sodium/Dextrose (Ancef Iv 1 Gm Duplex) 1 gm in 50 mls @ 50 mls/hr IVPB Q8 CLARI PRN Reason: Protocol Last Admin: 05/01/17 08:56 Dose: 50 mls/hr Mirtazapine (Remeron) 15 mg PO HS CLARI Ondansetron HCl (Zofran Inj) 4 mg IVP Q6 PRN PRN Reason: Nausea/Vomiting Ondansetron HCl (Zofran Odt) 4 mg PO Q6 PRN PRN Reason: Nausea/Vomiting Propranolol HCl (Inderal) 20 mg PO HS CLARI Ritonavir (Norvir) 100 mg PO DAILY CLARI - Labs Labs: 05/01/17 05:35 05/01/17 05:35 PT 15.4 Seconds (9.8-13.1) H 05/01/17 05:35 INR 1.4 (0.9-1.2) H 05/01/17 05:35 APTT 40.4 Seconds (25.6-37.1) H D 05/01/17 05:35 - Constitutional Appears: Non-toxic, No Acute Distress - Head Exam Head Exam: NORMAL INSPECTION - Eye Exam Eye Exam: Normal appearance - ENT Exam ENT Exam: Mucous Membranes Moist - Respiratory Exam Respiratory Exam: NORMAL BREATHING PATTERN. absent: Accessory Muscle Use, Respiratory Distress - Cardiovascular Exam Cardiovascular Exam: absent: Bradycardia, Tachycardia - GI/Abdominal Exam GI & Abdominal Exam: Soft, Hernia (umbilical). absent: Distended, Tenderness - Extremities Exam Extremities Exam: Normal Inspection - Neurological Exam Neurological Exam: Alert, Awake, Oriented x3 - Psychiatric Exam Psychiatric exam: Normal Affect, Normal Mood - Skin Skin Exam: Dry, Intact, Warm Assessment and Plan - Assessment and Plan (Free Text) Assessment: 51 y/o M w/ liver cirrhosis and umbilical hernia - pain management - pt is on the transplant list at [facility] --> recommend pt return there for future care - no surgical intervention at this time - ADAT - pt cleared for discharge from surgical standpoint Pt discussed w/ Dr. Galina Hill DO PGY2 <Berto Mojica - Last Filed: 05/01/17 20:04> Objective - Vital Signs/Intake and Output Vital Signs (last 24 hours): Temp Pulse Resp BP Pulse Ox 98.9 F 74 19 110/61 95 05/01/17 00:00 05/01/17 00:00 05/01/17 00:00 05/01/17 00:00 05/01/17 00:00 - Labs Labs: 05/01/17 05:35 05/01/17 05:35 PT 15.4 Seconds (9.8-13.1) H 05/01/17 05:35 INR 1.4 (0.9-1.2) H 05/01/17 05:35 APTT 40.4 Seconds (25.6-37.1) H D 05/01/17 05:35 Attending/Attestation - Attestation I have fully participated in the care of the patient.: Yes I have reviewed all pertinent clinical information, including history, physical exam and plan: Yes Notes (Text): Pt is improved clinically Pt can be DC home f.u in [facility] for further treatment f/u with GI Physician c/w home meds Plan d.w pt by surgery team in detail.
--- NOTE | 2017-05-01 15:03 | CT ---
PROCEDURE: CT Chest with contrast HISTORY: r/o mets COMPARISON: None. TECHNIQUE: Contiguous axial images were obtained through the chest with intravenous contrast enhancement. Sagittal and coronal reconstructions were performed. IV contrast: 95 cc Visipaque 320 Radiation dose (DLP): 1501.12 mGy-cm. This CT exam was performed using one or more of the following dose reduction techniques: Automated exposure control, adjustment of the mA and/or kV according to patient size, and/or use of iterative reconstruction technique. FINDINGS: LUNGS: No suspicious pulmonary nodules or masses. Dependent atelectasis at the lung bases. MEDIASTINUM: Unremarkable thoracic aorta. No aneurysm or dissection. Normal sized heart. Main pulmonary artery unremarkable. No vascular congestion. No lymphadenopathy. PLEURA: No pleural fluid. No pneumothorax. BONES: No fracture. No destructive lesion. UPPER ABDOMEN: No significant interval change compared to the prior examination(s). OTHER FINDINGS: None. IMPRESSION: No suspicious pulmonary nodules or masses. No evidence of metastatic disease to the thorax. Incidental finding(s): Bibasilar and dependent atelectasis.
--- NOTE | 2017-05-01 15:04 | NM ---
PROCEDURE: Whole Body Bone Scan HISTORY: rule out bone mets COMPARISON: None available. TECHNIQUE: Following administration of 24.7 miCu of Tc MDP multiplanar whole body images were obtained. FINDINGS: Evidence for bony metastatic disease: None. Degenerative uptake: None. Physiologic uptake: Normal physiologic activity in the kidneys. Other findings: None. IMPRESSION: No evidence of bony metastatic disease.
== END 2017-05-01 15:00 | disposition home or self-care (01) | DRG 552 ==
LOC: H.ER 21:29 → H.ERHOLD 04-29 00:10 → H.MEDSURG1 04-29 02:23 → OBSVTOIN 04-29 16:17
PROVIDERS: ADMIT Family Medicine Geriatric Medicine; ATTEND Family Medicine Geriatric Medicine
DX: K42.0 Umbilical hernia with obstruction, without gangrene (principal); K72.90 Hepatic failure, unspecified without coma; Z76.82 Awaiting organ transplant status; R18.8 Other ascites; C22.0 Liver cell carcinoma; K80.00 Calculus of gallbladder with acute cholecystitis without obstruction; K74.60 Unspecified cirrhosis of liver; B18.2 Chronic viral hepatitis C; E86.0 Dehydration; R16.1 Splenomegaly, not elsewhere classified; K29.50 Unspecified chronic gastritis without bleeding; Z91.11 Patient's noncompliance with dietary regimen; R19.7 Diarrhea, unspecified; Z21 Asymptomatic human immunodeficiency virus [HIV] infection status; F41.9 Anxiety disorder, unspecified; F32.9 Major depressive disorder, single episode, unspecified; J45.909 Unspecified asthma, uncomplicated; M19.90 Unspecified osteoarthritis, unspecified site; M06.9 Rheumatoid arthritis, unspecified; F17.200 Nicotine dependence, unspecified, uncomplicated